=== PATIENT | male | born 1975 | race Caucasian/White ===

== ENCOUNTER 2017-07-10 21:50 | Emergency (ER) | payer OTHER ==
[2017-07-10 22:09] VITALS: BP 145/63; PULSE 89; RESP 18; TEMP 97.4
[2017-07-10] MEDS ORDERED: DIPH,PERTUS(ACELL)TETVAC-LF 0.5 ML VIAL IM ONE (22:25)
[2017-07-10] MEDS ORDERED: TOPICAL SKIN ADHESIVE 1 EACH AMP TOPICAL ONE (22:25)
--- NOTE | 2017-07-10 22:29 | ED ---
General Adult HPI - General Source: patient, RN notes reviewed Mode of arrival: ambulatory Limitations: no limitations <Joel Oconnor - Last Filed: 07/10/17 22:55> <Sergio Grant - Last Filed: 07/10/17 23:09> - General Chief complaint: Wound/Laceration Stated complaint: finger lac-[facility] Time Seen by Provider: 07/10/17 22:15 - History of Present Illness Initial comments: Patient 41-year-old male presenting to the emergency room today with chief complaint of an injury to the right index finger. He does admit that he was at work using a saw when he didn't realize currently still on accidentally caught his left index finger just causes laceration. Unsure of his tetanus status. Denies any other complaints. Says he has full range of motion. Denies any fever or chills. Does admit to recent cough congestion. Denies body aches. Denies any nausea vomiting, numbness tingling (Joel Oconnor) - Related Data Previous Rx's Medication Instructions Recorded Cephalexin [Keflex] 500 mg PO Q6HR #20 cap 07/10/17 Sulfamethox-Tmp 800-160Mg [Bactrim 1 each PO Q12HR #14 tab 07/10/17 Ds] Allergies Allergy/AdvReac Type Severity Reaction Status Date / Time No Known Allergies Allergy Verified 07/10/17 22:07 Review of Systems ROS Other: All systems not noted in ROS Statement are negative. <Joel Oconnor - Last Filed: 07/10/17 22:55> ROS Other: All systems not noted in ROS Statement are negative. <Sergio Grant - Last Filed: 07/10/17 23:09> ROS Statement: Those systems with pertinent positive or pertinent negative responses have been documented in the HPI. Past Medical History Past Medical History: No Reported History History of Any Multi-Drug Resistant Organisms: None Reported Past Surgical History: No Surgical Hx Reported Past Psychological History: No Psychological Hx Reported Smoking Status: Former smoker Past Alcohol Use History: Occasional Past Drug Use History: Heroin <Joel Oconnor - Last Filed: 07/10/17 22:55> General Exam Limitations: no limitations <Joel Oconnor - Last Filed: 07/10/17 22:55> <Sergio Grant - Last Filed: 07/10/17 23:09> - General Exam Comments Initial Comments: General: The patient is awake and alert, in no distress, and does not appear acutely ill. Neck: The neck is supple, there is no tenderness or JVD. Cardiovascular: There is a regular rate and rhythm. No murmur, rub or gallop is appreciated. Respiratory: Lungs are clear to auscultation, respirations are non-labored, breath sounds are equal. No wheezes, stridor, rales, or rhonchi. Musculoskeletal: Patient has full range of motion. Sensation intact. Pulses equal bilaterally 2+. Strength is 5/5. Neurological: A&O x 3. CN II-XII intact, There are no obvious motor or sensory deficits. Coordination appears grossly intact. Speech is normal. Skin: 1 cm linear laceration to the volar aspect of the distal right index finger. No active bleeding. Psychiatric: Normal mood and affect. (Joel Oconnor) Vital Signs 07/10/17 22:07 Temperature 97.4 F L Pulse Rate 89 Respiratory 18 Rate Blood Pressure 145/63 O2 Sat by Pulse 97 Oximetry Procedures <Joel Oconnor - Last Filed: 07/10/17 22:55> <Sergio Grant - Last Filed: 07/10/17 23:09> - Procedures Initial comment: 1 cm linear laceration to the volar aspect of the right index finger. No active bleeding. Wound was cleaned with saline and Betadine. Wound was approximated and closed with Dermabond. Patient tolerated well. (Joel Oconnor ) Medical Decision Making <Joel Oconnor - Last Filed: 07/10/17 22:55> <Sergio Grant - Last Filed: 07/10/17 23:09> - Medical Decision Making Patient's tetanus updated here in the emergency room wound was closed with Dermabond. Patient started on antibiotics cover for infection advised to return for any signs of infection or any other concerns. (Joel Oconnor) Disposition Time of Disposition: 22:28 <Joel Oconnor - Last Filed: 07/10/17 22:55> <Sergio Grant - Last Filed: 07/10/17 23:09> Clinical Impression: Finger laceration Disposition: HOME SELF-CARE Condition: Good Instructions: Laceration (ED) Additional Instructions: Please allow the glue to fall off on its own over the next 3-5 days. Please watch for signs of infection which may include increased pain, swelling, redness , fever or chills. Please use antibiotic as prescribed. Return to emergency room for any other concerns. Prescriptions: Cephalexin [Keflex] 500 mg PO Q6HR #20 cap Sulfamethox-Tmp 800-160Mg [Bactrim Ds] 1 each PO Q12HR #14 tab Referrals: None,Stated [Primary Care Provider] - 1-2 days
== END 2017-07-10 23:13 | disposition home or self-care (01) ==
LOC: EC 21:50
DX: S61.210A Laceration without foreign body of right index finger without damage to nail, initial encounter (principal); Z23 Encounter for immunization; Z87.891 Personal history of nicotine dependence; W26.8XXA Contact with other sharp object(s), not elsewhere classified, initial encounter; Y99.0 Civilian activity done for income or pay; Y92.69 Other specified industrial and construction area as the place of occurrence of the external cause
CPT/HCPCS: 12001; 90471; 90715; 99282